=== PATIENT | female | born 1955 | race Caucasian/White ===

== ENCOUNTER → 2017-05-06 | Outpatient (CLI) | payer BC ==
[2005-05-08 07:34] VITALS: TEMP 97.5
[~2017-05-06] MED LIST: ANACIN PO; HYZAAR 12.5 MG-1 TAB PO; NITROSTAT0.4 MG/TAB SL; PRIL40 PO; ZEBETA 5MG5 MG PO
== END ==
LOC: MC.RAD 13:58
DX: Z12.31 Encounter for screening mammogram for malignant neoplasm of breast (principal); Z85.3 Personal history of malignant neoplasm of breast

== ENCOUNTER → 2018-05-20 | Outpatient (CLI) | payer BC ==
[2005-05-08 07:34] VITALS: TEMP 97.5
== END ==
LOC: MC.RAD 14:12
DX: Z12.31 Encounter for screening mammogram for malignant neoplasm of breast (principal); Z85.3 Personal history of malignant neoplasm of breast; Z90.12 Acquired absence of left breast and nipple

== ENCOUNTER → 2019-06-09 | Outpatient (CLI) | payer BC ==
[2005-05-08 07:34] VITALS: TEMP 97.5
== END ==
LOC: MC.RAD 16:42
DX: Z12.31 Encounter for screening mammogram for malignant neoplasm of breast (principal)

== ENCOUNTER → 2020-06-13 | Outpatient (CLI) | payer BC | LOC: MC.RAD 15:00 | DX: Z12.31 Encounter for screening mammogram for malignant neoplasm of breast (principal) ==

== ENCOUNTER → 2020-08-18 | Outpatient (CLI) | payer MEDICARE | LOC: COL.RAD 07:54 | DX: R10.9 Unspecified abdominal pain (principal); M54.6 Pain in thoracic spine; G89.29 Other chronic pain ==

== ENCOUNTER → 2020-08-18 | Outpatient (CLI) | payer MEDICARE | LOC: DIA.ED 07:54 | DX: E11.59 Type 2 diabetes mellitus with other circulatory complications (principal); I10 Essential (primary) hypertension; E78.5 Hyperlipidemia, unspecified | CPT/HCPCS: G0108 ==

== ENCOUNTER → 2021-08-22 | Outpatient (CLI) | payer MEDICARE | LOC: MC.RAD 14:00 | DX: Z12.31 Encounter for screening mammogram for malignant neoplasm of breast (principal) ==

== ENCOUNTER → 2023-11-13 | Outpatient (CLI) | payer MEDICARE ==
[2005-05-08 07:34] VITALS: BP 138/75; PULSE 100; TEMP 97.5
== END ==
LOC: MC.RAD 13:30
DX: Z12.31 Encounter for screening mammogram for malignant neoplasm of breast (principal)

== ENCOUNTER 2024-02-03 20:22 | Emergency (ER) | payer MEDICARE ==
[~2024-02-03] VITALS: Ht 10.2 cm; Wt 85.5 kg
[2024-02-03 20:27] VITALS: TEMP 98.2
[2024-02-03 20:56] LABS: BASO # 0.1 K/mm3 (0.0-0.2); BASO % 0.4 % (0.0-2.0); EOS # 0.2 K/mm3 (0.0-0.7); EOS % 1.7 % (0.0-4.0); GRAN # 6.1 K/mm3 (1.4-6.5); GRAN % 54.5 % (42.2-75.2); HEMATOCRIT 44.9 % (37.0-47.0); HEMOGLOBIN 15.3 g/dl (12.5-16.0); LYMPH # 3.5 K/mm3 (1.2-3.4); LYMPH % 31.2 % (20.0-51.0); MEAN CELL VOLUME 97 fl (80.0-100.0); MEAN CORPUSCULAR HEMOGLOBIN 33 pg (27-31); MEAN CORPUSCULAR HGB CONC 34 g/dl (33.0-37.0); MEAN PLATELET VOLUME 11.1 fl (7.4-10.4); MONO # 1.3 K/mm3 (0.1-0.6); MONO % 11.8 % (1.7-9.3); PLATELET COUNT 174 K/mm3 (130-400); RED BLOOD COUNT 4.65 M/mm3 (4.10-5.30); REDCELL DISTRIBUTION WIDTH-CV 12.6 % (11.5-14.5)
[2024-02-03 21:11] LABS: PROTHROMBIN TIME 11.1 SECONDS (9.7-12.8)
[2024-02-03 21:14] LABS: PARTIAL THROMBOPLASTIN TIME 27.9 SECONDS (26.0-37.0)
[2024-02-03 21:32] LABS: ALANINE AMINOTRANSFERASE 24 U/L (0-55); ALBUMIN 4.3 g/dL (3.4-4.8); ALKALINE PHOSPHATASE 35 U/L (40-150); ANION GAP 13 mmol/L (7-16); AST,SGOT 11 U/L (5-34); BILIRUBIN,TOTAL 0.3 mg/dL (0.2-1.2); BLOOD UREA NITROGEN 20 mg/dL (10-20); CALCIUM 10.5 mg/dL (8.4-10.2); CHLORIDE 106 mEq/L (98-107); CREATININE, serum 0.75 mg/dL (0.57-1.11); GLUCOSE 104 mg/dL (70-99); LIPASE 20 U/L (8-78); SODIUM 143 mEq/L (136-145)
[2024-02-03 21:40] LABS: TROPONIN-I < 0.010 ng/mL (0.00-0.033)
[2024-02-04 00:13] VITALS: BP 130/80; PULSE 76
== END 2024-02-04 00:13 | disposition home or self-care (01) ==
LOC: COL.ER 20:22
PROVIDERS: Emergency Medicine
DX: I10 Essential (primary) hypertension (principal); R07.89 Other chest pain; R11.0 Nausea; K44.9 Diaphragmatic hernia without obstruction or gangrene; Z85.3 Personal history of malignant neoplasm of breast